=== PATIENT | male | born 1970 | race Two or more races ===

== ENCOUNTER 2019-06-12 07:39 | Outpatient (CLI) | payer OTHER ==
[2019-06-12] MEDS ORDERED: OMEG-170 PO (08:20)
== END 2019-06-12 23:59 | disposition home or self-care (01) ==
LOC: STAR 07:39
PROVIDERS: ATTEND Surgery
DX: Z02.9 Encounter for administrative examinations, unspecified (principal)

== ENCOUNTER 2019-08-07 07:44 | Day surgery (SDC) | payer OTHER ==
[~2019-08-07] VITALS: Ht 177.8 cm; Wt 94.6 kg
[~2019-08-07 07:44] MED LIST: OMEG-170 PO
[2019-08-07] MEDS ORDERED: LACTATED RINGERS 1,000 ML IV SCH (08:18)
[2019-08-07 08:19] VITALS: BP 120/83
[2019-08-07] MEDS ORDERED: CHLORHEXIDINE 15 ML UDC MM ONE (08:30)
[2019-08-07] MEDS ORDERED: FENTANYL PF 250 MCG/5ML ONE (09:28)
[2019-08-07] MEDS ORDERED: MIDAZOLAM 1 MG/ML, 2ML ONE (09:28)
[2019-08-07] MEDS ORDERED: BUPIVACAINE/PF-EPI 0.5% 1:200K ONE ×2 (10:06→15:38)
[2019-08-07] MEDS ORDERED: KETOROLAC 30 MG/1 ML IV PRN (10:30)
[2019-08-07] MEDS ORDERED: ACETAMINOPHEN 325 MG TABLET PO PRN (10:30)
[2019-08-07] MEDS ORDERED: HYDROmorphone 2 MG/ML, 1ML IVPush PRN (10:30)
[2019-08-07] MEDS ORDERED: FENTANYL PF 100 MCG/2ML IV PRN (10:30)
[2019-08-07] MEDS ORDERED: ALBUTEROL SULFATE 2.5 MG/3 ML NPPB PRN (10:30)
[2019-08-07] MEDS ORDERED: PROMETHAZINE 25 MG/ML, 1ML IV PRN (10:30)
[2019-08-07] MEDS ORDERED: hydrALAzine 20 MG/ML, 1ML IV PRN (10:30)
[2019-08-07] MEDS ORDERED: LABETALOL 5MG/ML, 20ML IV PRN (10:30)
[2019-08-07] MEDS ORDERED: OXYcodone 5 MG/5 ML ORAL.SOL UDC PO PRN (10:30)
[2019-08-07] MEDS ORDERED: DIAZEPAM 5 MG/ML, 2ML IVPush PRN (10:30)
[2019-08-07] MEDS ORDERED: MEPERIDINE/PF 25MG/0.5ML IVPush PRN (10:30)
[2019-08-07] MEDS ORDERED: SUCCINYLCHOLINE 20 MG/ML, 10ML ONE (11:39)
[2019-08-07] MEDS ORDERED: KETOROLAC 30 MG/1 ML ONE (11:39)
[2019-08-07] MEDS ORDERED: CEFAZOLIN 1,000 MG ONE (11:39)
[2019-08-07] MEDS ORDERED: GLYCOPYRROLATE 0.2MG/1ML, 5ML ONE (11:39)
[2019-08-07] MEDS ORDERED: NEOSTIGMINE 1 MG/ML, 10ML ONE (11:39)
[2019-08-07] MEDS ORDERED: ONDANSETRON 2MG/ML, 2ML ONE (11:39)
[2019-08-07] MEDS ORDERED: ROCURONIUM 10MG/ML,5ML ONE (11:39)
[2019-08-07] MEDS ORDERED: PROPOFOL 10 MG/ML, 20ML ONE (11:39)
[2019-08-07] MEDS ORDERED: SUGAMMADEX 200 MG/2 ML IVPush ONE (11:39)
[2019-08-07] MEDS ORDERED: DEXAMETHASONE 4 MG/ML, 1ML ONE (11:39)
[2019-08-07] MEDS ORDERED: ACETAMINOPHEN 650 MG/20.3 ML UDC ONE (11:55)
[2019-08-07] MEDS ORDERED: OXYcodone 5 MG/5 ML ORAL.SOL UDC ONE (11:56)
[2019-08-07] MEDS ORDERED: FENTANYL PF 100 MCG/2ML ONE (11:56)
== END 2019-08-07 14:45 | disposition home or self-care (01) ==
LOC: OUT 07:44
PROVIDERS: ATTEND Surgery
DX: K40.20 Bilateral inguinal hernia, without obstruction or gangrene, not specified as recurrent (principal); D17.6 Benign lipomatous neoplasm of spermatic cord; Z79.891 Long term (current) use of opiate analgesic
CPT/HCPCS: 49650; C1781; J0330; J0690; J1100; J1885; J2250; J2405; J2704; J2710; J3010; J7120; S2900